=== PATIENT | male | born 1965 | race Two or more races ===

== ENCOUNTER 2016-10-05 11:11 | Emergency (ER) | payer OTHER ==
[~2016-10-05] VITALS: Ht 185.4 cm; Wt 128.1 kg
[2016-10-05 11:12] VITALS: BP 168/90
[2016-10-05] MEDS ORDERED: METF500T4 PO (11:33)
[2016-10-05] MEDS ORDERED: HYDR12.53 PO (11:33)
[2016-10-05] MEDS ORDERED: LIDOCAINE 1%-EPI 1:100K, 20ML ONE (11:44)
[2016-10-05] MEDS ORDERED: ONDANSETRON ODT 8 MG ONE (12:45)
[2016-10-05] MEDS ORDERED: ONDANSETRON ODT 8 MG PO ONE (13:00)
== END 2016-10-05 12:50 | disposition home or self-care (01) ==
LOC: ED 12:21
DX: R04.0 Epistaxis (principal); I10 Essential (primary) hypertension; E11.9 Type 2 diabetes mellitus without complications
CPT/HCPCS: 99284; Q0162

== ENCOUNTER 2018-11-11 05:58 | Day surgery (SDC) | payer OTHER ==
[~2018-11-11] VITALS: Ht 185.4 cm; Wt 124.0 kg
[~2018-11-11 05:58] MED LIST: HYDR12.517 PO; METF500T17 PO
[2018-11-11 06:07] VITALS: BP 124/85
[2018-11-11] MEDS ORDERED: LACTATED RINGERS 1,000 ML IV SCH (06:12)
[2018-11-11] MEDS ORDERED: METF-163 PO (06:18)
[2018-11-11] MEDS ORDERED: RIVA20TA PO (06:18)
[2018-11-11] MEDS ORDERED: LOSA100T14 PO (06:18)
[2018-11-11] MEDS ORDERED: SITA50TA PO (06:18)
[2018-11-11] MEDS ORDERED: ATOR20TA37 PO (06:18)
[2018-11-11] MEDS ORDERED: BUPIVACAINE/PF-EPI 0.5% 1:200K ONE (06:29)
[2018-11-11] MEDS ORDERED: ACETAMINOPHEN 500 MG TABLET PO ONE (06:30)
[2018-11-11] MEDS ORDERED: GABAPENTIN 300 MG CAPSULE PO ONE (06:30)
[2018-11-11] MEDS ORDERED: MIDAZOLAM 1 MG/ML, 2ML ONE (06:32)
[2018-11-11] MEDS ORDERED: FENTANYL PF 250 MCG/5ML ONE (06:32)
[2018-11-11] MEDS ORDERED: PROPOFOL 10 MG/ML, 20ML ONE (06:56)
[2018-11-11] MEDS ORDERED: ONDANSETRON 2MG/ML, 2ML IV PRN (07:00)
[2018-11-11] MEDS ORDERED: MORPHINE SULFATE 4 MG/ML, 1ML IVPush PRN (07:00)
[2018-11-11] MEDS ORDERED: hydrALAzine 20 MG/ML, 1ML IV PRN (07:00)
[2018-11-11] MEDS ORDERED: FENTANYL PF 100 MCG/2ML IV PRN (07:00)
[2018-11-11] MEDS ORDERED: HYDROmorphone 2 MG/ML, 1ML IVPush PRN (07:00)
[2018-11-11] MEDS ORDERED: ONDANSETRON ODT 8 MG PO PRN (07:00)
[2018-11-11] MEDS ORDERED: PROMETHAZINE 12.5 MG SUPP PR PRN (07:00)
[2018-11-11] MEDS ORDERED: LABETALOL 5MG/ML, 20ML IV PRN (07:00)
[2018-11-11] MEDS ORDERED: PROMETHAZINE 25 MG SUPP PR PRN (07:00)
[2018-11-11] MEDS ORDERED: OXYcodone 5 MG/5 ML ORAL.SOL UDC PO PRN (07:00)
[2018-11-11] MEDS ORDERED: PROMETHAZINE 25 MG/ML, 1ML IV PRN (07:00)
[2018-11-11] MEDS ORDERED: PROMETHAZINE 25 MG/ML, 1ML IM PRN ×2 (07:00)
[2018-11-11] MEDS ORDERED: ROCURONIUM 10MG/ML,5ML ONE (07:12)
[2018-11-11] MEDS ORDERED: GLYCOPYRROLATE 0.2MG/1ML, 5ML ONE (07:12)
[2018-11-11] MEDS ORDERED: NEOSTIGMINE 1 MG/ML, 10ML ONE (07:12)
[2018-11-11] MEDS ORDERED: CEFAZOLIN 1,000 MG ONE (07:12)
[2018-11-11] MEDS ORDERED: SUGAMMADEX 200 MG/2 ML IVPush ONE ×2 (07:19→07:20)
[2018-11-11] MEDS ORDERED: BUPIVACAINE/PF-EPI 0.5% 1:200K INFIL ONE (07:23)
[2018-11-11] MEDS ORDERED: OXYcodone 5 MG/5 ML ORAL.SOL UDC ONE (07:56)
[2018-11-11] MEDS ORDERED: MEPERIDINE/PF 25MG/ML,1ML ONE (07:56)
[2018-11-11] MEDS: MEPERIDINE/PF 25MG/0.5ML IVPush PRN ×2 (08:10→08:30)
[2018-11-11] MEDS ORDERED: KETOROLAC 30 MG/1 ML ONE (09:38)
[2018-11-11] MEDS ORDERED: KETOROLAC 30 MG/1 ML IVPush SCH (10:00)
== END 2018-11-11 11:00 | disposition home or self-care (01) ==
LOC: OUT 05:58
PROVIDERS: ATTEND Colon & Rectal Surgery
DX: K60.2 Anal fissure, unspecified (principal); I10 Essential (primary) hypertension; E78.5 Hyperlipidemia, unspecified; E11.9 Type 2 diabetes mellitus without complications; E66.01 Morbid (severe) obesity due to excess calories; F17.210 Nicotine dependence, cigarettes, uncomplicated; Z68.36 Body mass index [BMI] 36.0-36.9, adult; Z79.84 Long term (current) use of oral hypoglycemic drugs; Z79.01 Long term (current) use of anticoagulants; Z79.899 Other long term (current) drug therapy; Z86.718 Personal history of other venous thrombosis and embolism
CPT/HCPCS: 46200; 82962; J0690; J1885; J2175; J2250; J2704; J2710; J3010; J7120